=== PATIENT | male | born 1940 | race Caucasian/White ===

== ENCOUNTER 2017-11-03 18:54 | Emergency (ER) | payer MEDICARE, BC ==
--- NOTE | 2017-11-03 19:53 | EDM.PDOC ---
ED HPI GENERAL MEDICAL PROBLEM - General Chief Complaint: Flank Pain Stated Complaint: R FLANK PAIN Time Seen by Provider: 11/03/17 19:30 Source of Information: Reports: Patient, Family History Limitations: Reports: No Limitations - History of Present Illness INITIAL COMMENTS - FREE TEXT/NARRATIVE: 77-year-old male who has developed a right lateral chest and right flank pain over the past 24 hours. It started as a vague discomfort yesterday, seemed to be better this morning but as he increased activity it started to bother him more. Tonight he was out trying to start a snowmobile and after several attempts at pulling the starter he noticed the pain markedly increased, is also getting significant discomfort with any coughs. The pain is very localized to the right flank into the right anterior lateral chest. No shortness of breath, no fever or chills, no specific trauma such as falls, denies abdominal pain. Onset: Gradual (Over the past 24 hours) Location: Reports: Chest, Back Quality: Reports: Sharp, Stabbing Severity: Moderate Improves with: Reports: None Worsens with: Reports: Other (Coughing or sudden movement) right flank Pain Score (Numeric/FACES): 8 - Related Data Allergies Allergy/AdvReac Type Severity Reaction Status Date / Time No Known Allergies Allergy Verified 11/03/17 19:07 Home Meds: Home Meds Allopurinol [Zyloprim] 100 mg PO DAILY 05/31/16 [History] Cholecalciferol (Vitamin D3) [Vitamin D] 1,000 unit PO DAILY 05/31/16 [History] Doxazosin Mesylate [Cardura] 4 mg PO BID 05/31/16 [History] Ferrous Sulfate 325 mg PO DAILY 05/31/16 [History] Finasteride [Proscar] 5 mg PO DAILY 05/31/16 [History] Hydrochlorothiazide 12.5 mg PO DAILY 05/31/16 [History] atorvaSTATin [Lipitor] 20 mg PO BEDTIME 10/14/16 [History] glipiZIDE [Glucotrol Xl] 5 mg PO BID 10/14/16 [History] Albuterol Sulfate [Proair Respiclick] 2 puff IH QID PRN 05/19/17 [History] Fluticasone/Salmeterol [Advair 250-50 Diskus] 1 puff PO BID 05/19/17 [History] Nebivolol HCl [Bystolic] 5 mg PO DAILY 05/19/17 [History] Warfarin [Coumadin] 5 mg PO DAILY 05/19/17 [History] Aspirin [Ecotrin] 325 mg PO DAILY 11/03/17 [History] Past Medical History HEENT History: Reports: Cataract, Impaired Vision Cardiovascular History: Reports: Afib, Heart Murmur, High Cholesterol, Hypertension, SOB on Exertion Respiratory History: Reports: COPD Gastrointestinal History: Reports: GERD Genitourinary History: Reports: Chronic Renal Insuffiency, Renal Disease Other Genitourinary History: kidney diseases Musculoskeletal History: Reports: Arthritis, Gout Neurological History: Reports: TIA Endocrine/Metabolic History: Reports: Diabetes, Type II, Obesity/BMI 30+ Hematologic History: Reports: Anticoagulation Therapy - Infectious Disease History Infectious Disease History: Reports: Chicken Pox, Measles, Mumps - Past Surgical History HEENT Surgical History: Reports: Cataract Surgery Cardiovascular Surgical History: Reports: Carotid Endarterectomy GI Surgical History: Reports: Hernia Repair/Other Musculoskeletal Surgical History: Reports: Knee Replacement Social & Family History - Tobacco Use Smoking Status *Q: Never Smoker - Caffeine Use Caffeine Use: Reports: Coffee - Recreational Drug Use Recreational Drug Use: No ED ROS GENERAL - Review of Systems Review Of Systems: See Below Constitutional: Denies: Fever, Chills Respiratory: Reports: Pleuritic Chest Pain. Denies: Shortness of Breath Cardiovascular: Reports: Chest Pain GI/Abdominal: Denies: Abdominal Pain, Nausea, Vomiting : Reports: Other (Being followed for renal failure, no dysuria or urinary symptoms) Skin: Denies: Bruising, Rash Neurological: Reports: No Symptoms Psychiatric: Reports: No Symptoms ED EXAM, GENERAL - Physical Exam Exam: See Below Exam Limited By: No Limitations General Appearance: Alert, No Apparent Distress Respiratory/Chest: No Respiratory Distress, Lungs Clear, Other (Pain is reproducible with palpation of the lateral chest wall over the lower ribs, 9 through 11th. No crepitus or asymmetry.) GI/Abdominal: Normal Bowel Sounds. No: Tender (Abdomen is obese but nontender to palpation) Course - Vital Signs Last Recorded V/S: Last Vital Signs Temp 96.1 F 11/03/17 19:17 Pulse 77 11/03/17 19:45 Resp 18 11/03/17 19:17 BP 163/63 H 11/03/17 19:45 Pulse Ox 93 L 11/03/17 19:17 - Orders/Labs/Meds Orders: Active Orders 24 hr Category Date Time Status Chest 2V [CR] Routine Exams 11/03/17 19:46 Taken - Re-Assessments/Exams Free Text/Narrative Re-Assessment/Exam: 11/03/17 19:53 A two-view chest x-ray was obtained. 11/03/17 20:33 Chest x-ray shows what appears to be a rib fracture of the lateral 9th rib. This patient recently had a PET scan which apparently was negative, a pathologic fracture would certainly be a concern but the recent PET scan is reassuring. He was discharged with 20 hydrocodone to use for extra pain control along with ibuprofen or naproxen, and benzonatate Perles to help with his cough. He will return if worsening such as fever or shortness of breath, or consider recheck in 7-10 days if not improving satisfactorily. Departure - Departure Time of Disposition: 20:44 Disposition: Home, Self-Care 01 Condition: Good Clinical Impression: Closed rib fracture Qualifiers: Encounter type: initial encounter Rib fracture type: single rib Laterality: right Qualified Code(s): S22.31XA - Fracture of one rib, right side, initial encounter for closed fracture - Discharge Information Instructions: Rib Fracture, [id number] Referrals: Leodan Gardner PA-C [Primary Care Provider] - Forms: ED Department Discharge Care Plan Goals: Try ibuprofen or naproxen for the next several days, and add stronger pain medication as needed and prescribed. Use cough suppression medication as prescribed. Recheck if worsening such as fever, uncontrolled pain, worsening shortness of breath. Otherwise recheck in 7-10 days if you do not feel you're healing satisfactorily. - My Orders Last 24 Hours: My Active Orders 11/03/17 19:46 Chest 2V [CR] Routine - Assessment/Plan Last 24 Hours: My Active Orders 11/03/17 19:46 Chest 2V [CR] Routine
[2017-11-03 20:37] VITALS: BP 163/63
--- NOTE | 2017-11-04 09:49 | CR ---
Chest 2V HISTORY: dyspnea COMPARISON: None FINDINGS: Lungs appear clear and mildly hyperinflated. Heart size is upper limits of normal. No vascular redist ribution or pleural fluid can be seen. There is a fracture of the posterior lateral right ninth rib. Acuity is indeterminate. No pneumothorax is seen. IMPRESSION: Mild hyperinflation suggests a component of COPD. Fracture of the posterior lateral right ninth rib i s of indeterminate acuity. Recommend correlation for point tenderness. No other acute chest abnormali ty is identified.
== END 2017-11-03 20:42 | disposition home or self-care (01) ==
LOC: JP.ED 18:54
DX: S22.31XA Fracture of one rib, right side, initial encounter for closed fracture (principal); I12.9 Hypertensive chronic kidney disease with stage 1 through stage 4 chronic kidney disease, or unspecified chronic kidney disease; E11.22 Type 2 diabetes mellitus with diabetic chronic kidney disease; N18.9 Chronic kidney disease, unspecified; J44.9 Chronic obstructive pulmonary disease, unspecified; I48.91 Unspecified atrial fibrillation; E78.00 Pure hypercholesterolemia, unspecified; Z79.01 Long term (current) use of anticoagulants; Z79.82 Long term (current) use of aspirin; Z79.84 Long term (current) use of oral hypoglycemic drugs; Z79.899 Other long term (current) drug therapy; X58.XXXA Exposure to other specified factors, initial encounter; Y93.29 Activity, other involving ice and snow
CPT/HCPCS: 71020; 71020-26; 99283; 99284

== ENCOUNTER 2018-04-12 10:45 | Day surgery (SDC) | payer MEDICARE, BC ==
[~2018-04-12 10:45] MED LIST: Bupivacaine 0.5% 50 ML MDV ONE; Lidocaine 2% 20 ML MDV ONE
[2018-04-12] MEDS ORDERED: fentaNYL 100 MCG/2 ML SDV ONE (10:57)
[2018-04-12] MEDS ORDERED: Propofol 200 MG/20 ML SDV ONE (10:57)
[2018-04-12] MEDS ORDERED: Midazolam 1 MG/ML 2 ML SDV ONE (10:57)
[2018-04-12] MEDS ORDERED: ceFAZolin 2 GM in Premix Bag 1 BAG IV ONE (11:30)
[2018-04-12] MEDS ORDERED: Lactated Ringers 1,000 ML IV SCH (11:30)
--- NOTE | 2018-04-12 13:41 | OR ---
DATE OF PROCEDURE: 04/12/2018 HEADER BOSS: None. PREOPERATIVE DIAGNOSIS: Ulcer right second toe. POSTOPERATIVE DIAGNOSIS: Ulcer right second toe. PROCEDURE: Amputation right 2nd toe. ANESTHESIA: Local with IV sedation. HEMOSTASIS: Was obtained with an ankle tourniquet on the right ankle at 250 mmHg. ESTIMATED BLOOD LOSS: 5 mL. MATERIALS: None. INJECTABLES: 16 mL of 1:1 mixture of lidocaine 2% plain, Marcaine 0.5% plain was injected prior to prep. PATHOLOGY: Right 2nd toe, sent condition was stable. INDICATIONS FOR SURGERY: Recurrent ulcer, right 2nd toe. PROCEDURE IN DETAIL: The patient was brought to the operating room, placed on the operating table in supine position. Following IV sedation, anesthesia was obtained with a total of 16 mL of 1:1 mixture of lidocaine 2% plain, Marcaine 0.5% plain. The right foot was scrubbed, prepped, and draped in the usual aseptic manner, raised to 60 degrees for hemostasis and tourniquet was inflated. Esmarch was not used. Incision was made in a semielliptical type incision at the base of the right 2nd toe. Incisions were carried straight down to bone and the right 2nd toe was disarticulated at the metatarsophalangeal joint and then removed. The incision was examined and the right 2nd metatarsal head was healthy with strong bone and white cartilage there was no purulence, no malodor, no signs of infection at the amputation site. The amputation site was flushed with copious amounts of sterile saline and then closed with 3-0 nylon in a simple interrupted configuration and dressed with Xeroform, 4x4s, Kerlix, and Coban. The patient was returned to recovery room with vital signs stable and vascular status intact to both feet. Patient is given prescription for Catlett one tab p.o. q.4-6 h. p.r.n. pain dispensed #30 and told him to return to clinic in one week at which time, he will be re-evaluated. The patient is told to go to the emergency room immediately if he has any nausea, vomiting, fever, chills, chest pain, calf pain, or difficulty breathing, and to follow up with Dr. White one week. Keep dressings clean, dry, and intact. Partial weightbearing on the right foot with a Cam boot and also with walker. Sridhar Scott DPM /[id number]
[2018-04-12 13:55] VITALS: BP 178/117
[2018-04-12] MEDS ORDERED: Acetaminophen/HYDROcodone 325-5 MG Tab PO PRN (14:26)
== END 2018-04-12 14:55 | disposition home or self-care (01) ==
LOC: JP.SDS 10:45
PROVIDERS: ATTEND Podiatrist Foot & Ankle Surgery
DX: E11.621 Type 2 diabetes mellitus with foot ulcer (principal); L97.519 Non-pressure chronic ulcer of other part of right foot with unspecified severity; I12.9 Hypertensive chronic kidney disease with stage 1 through stage 4 chronic kidney disease, or unspecified chronic kidney disease; E11.22 Type 2 diabetes mellitus with diabetic chronic kidney disease; N18.4 Chronic kidney disease, stage 4 (severe); Z79.4 Long term (current) use of insulin; J44.9 Chronic obstructive pulmonary disease, unspecified; G47.33 Obstructive sleep apnea (adult) (pediatric); E66.9 Obesity, unspecified; Z68.39 Body mass index [BMI] 39.0-39.9, adult; I48.91 Unspecified atrial fibrillation; Z79.82 Long term (current) use of aspirin; Z79.899 Other long term (current) drug therapy
CPT/HCPCS: 28820; A9270; J0690; J2250; J2704; J3010; J7120; 88305; 88311

== ENCOUNTER 2019-05-22 00:17 | Emergency (ER) | payer BC, MEDICARE ==
[2019-05-22 00:34] VITALS: BP 140/61; PULSE 80
--- NOTE | 2019-05-22 01:29 | EDM.PDOC ---
ED HPI GENERAL MEDICAL PROBLEM - General Chief Complaint: Genitourinary Problem Stated Complaint: BLEEDING Time Seen by Provider: 05/22/19 00:45 Source of Information: Reports: Patient, Family History Limitations: Reports: No Limitations - History of Present Illness INITIAL COMMENTS - FREE TEXT/NARRATIVE: 78-year-old male with gross hematuria for the past hour and a half. This is his second incident of hematuria in the last 2 weeks, he had fairly complete clearing intermittent was still some microscopic hematuria. He has a follow-up appointment in 2 days with his primary provider. Tonight he noticed while having a bowel movement he was having the sensation of incontinence and looked down and he was bleeding from the penis. He has no dysuria or urinary frequency , no flank pain. It seems to have slowed down now but there is a clot at the meatus. He is uncircumcised. He is having no problems passing his urine. Onset: Unknown/Unsure Associated Symptoms: Reports: No Other Symptoms - Related Data Allergies Allergy/AdvReac Type Severity Reaction Status Date / Time No Known Allergies Allergy Verified 05/22/19 00:34 Home Meds: Home Meds Allopurinol [Zyloprim] 100 mg PO DAILY 05/31/16 [History] Cholecalciferol (Vitamin D3) [Vitamin D] 1,000 unit PO DAILY 05/31/16 [History] Doxazosin Mesylate [Cardura] 4 mg PO BID 05/31/16 [History] Ferrous Sulfate 325 mg PO DAILY 05/31/16 [History] Finasteride [Proscar] 5 mg PO DAILY 05/31/16 [History] atorvaSTATin [Lipitor] 20 mg PO BEDTIME 10/14/16 [History] glipiZIDE [Glucotrol Xl] 5 mg PO BID 10/14/16 [History] Albuterol Sulfate [Proair Respiclick] 2 puff IH QID PRN 05/19/17 [History] Warfarin [Coumadin] 5 mg PO DAILY 05/19/17 [History] Acetaminophen [Tylenol Extra Strength] 500 - 1,000 mg PO Q6H PRN 04/12/18 [ History] Furosemide 40 mg PO DAILY 04/12/18 [History] hydrALAZINE [Apresoline] 25 mg PO TID 04/12/18 [History] Albuterol Sulfate 1.25 mg IH Q4HR PRN 05/22/19 [History] Budesonide [Pulmicort] 1 mg IH BID 05/22/19 [History] Formoterol [Perforomist] 20 mcg INH BID 05/22/19 [History] Insulin NPH/Insulin Reg,Human [HumuLIN 70-30] 25 units SQ BID 05/22/19 [History] Ipratropium [Atrovent] 0.5 mg IH BID 05/22/19 [History] Metoprolol Succinate [Toprol XL 50mg] 50 mg PO DAILY 05/22/19 [History] Warfarin [Coumadin] 10 mg PO DAILY 05/22/19 [History] Past Medical History HEENT History: Reports: Cataract, Impaired Vision Cardiovascular History: Reports: Afib, Heart Murmur, High Cholesterol, Hypertension, SOB on Exertion Respiratory History: Reports: Asthma, COPD, Sleep Apnea Gastrointestinal History: Reports: GERD Genitourinary History: Reports: Chronic Renal Insuffiency, Renal Disease Other Genitourinary History: kidney diseases Musculoskeletal History: Reports: Arthritis, Gout Neurological History: Reports: TIA Endocrine/Metabolic History: Reports: Diabetes, Type II, Obesity/BMI 30+ Hematologic History: Reports: Anticoagulation Therapy - Infectious Disease History Infectious Disease History: Reports: Chicken Pox, Measles, Mumps - Past Surgical History HEENT Surgical History: Reports: Cataract Surgery Cardiovascular Surgical History: Reports: Carotid Endarterectomy GI Surgical History: Reports: Hernia Repair/Other Musculoskeletal Surgical History: Reports: Knee Replacement Other Musculoskeletal Surgeries/Procedures:: Both knees replaced. Social & Family History - Tobacco Use Smoking Status *Q: Former Smoker Used Tobacco, but Quit: Yes Month/Year Tobacco Last Used: 30 years - Caffeine Use Caffeine Use: Reports: Coffee - Recreational Drug Use Recreational Drug Use: No ED ROS GENERAL - Review of Systems Review Of Systems: See Below Constitutional: Denies: Fever, Chills Respiratory: Reports: Shortness of Breath (Chronic shortness of breath and COPD) GI/Abdominal: Denies: Abdominal Pain : Reports: Other (Patient is being followed for known renal failure but is not on dialysis) Neurological: Reports: No Symptoms Psychiatric: Reports: No Symptoms ED EXAM, RENAL/ - Physical Exam Exam: See Below Exam Limited By: No Limitations General Appearance: Alert, No Apparent Distress Respiratory/Chest: No Respiratory Distress GI/Abdominal: Normal Bowel Sounds, Soft, Non-Tender (Male) Exam: Other (Genitourinary area appears grossly normal, he is uncircumcised. There is a well-developed clot under the foreskin which was removed, there is no active bleeding currently.) Course - Vital Signs Last Recorded V/S: Last Vital Signs Temp 96.6 F 05/22/19 00:31 Pulse 80 05/22/19 00:31 Resp 18 05/22/19 00:31 BP 140/61 05/22/19 00:31 Pulse Ox 90 L 05/22/19 00:31 - Orders/Labs/Meds Labs: Laboratory Tests 05/22/19 05/22/19 Range/Units 01:16 01:16 WBC 7.4 (4.5-11.0) K/uL RBC 3.58 L (4.30-5.90) M/uL Hgb 11.0 L (12.0-15.0) g/dL Hct 35.6 L (40.0-54.0) % MCV 99 H (80-98) fL MCH 31 (27-31) pg MCHC 31 L (32-36) % Plt Count 152 (150-400) K/uL Neut % (Auto) 66 (36-66) % Lymph % (Auto) 21 L (24-44) % Greer % (Auto) 9 H (2-6) % Eos % (Auto) 3 (2-4) % Baso % (Auto) 0 (0-1) % PT 19.8 H (9.5-12.0) sec INR 1.90 H (0.80-1.20) - Re-Assessments/Exams Free Text/Narrative Re-Assessment/Exam: 05/22/19 01:29 CBC and INR was obtained. 05/22/19 01:48 INR was 1.9, CBC revealed a hemoglobin of 11.0. Hemoglobin was 11.7 2 months ago. The bleeding seems to have stopped currently, but this patient doesn't need a fairly urgent urology consultation for a cystoscopy. He has an appointment with his primary provider to our on Wednesday, but will call later today if the bleeding is persistent as he was discharged from the emergency room at 2 AM. He can also return to the emergency room. He will also return if he develops any bladder obstruction. Departure - Departure Time of Disposition: 02:01 Disposition: Home, Self-Care Clinical Impression: Gross hematuria - Discharge Information Instructions: Hematuria, Adult Referrals: Otis James NP [Primary Care Provider] - Forms: ED Department Discharge Care Plan Goals: Continue your current medications, call Otis James tomorrow to discuss a urology referral or return to the emergency room if bleeding is persistent, you developed dizziness or become lightheaded. Also return if you develop bladder obstruction with discomfort and inability to urinate.
== END 2019-05-22 02:01 | disposition home or self-care (01) ==
LOC: JP.ED 00:17
DX: R31.0 Gross hematuria (principal); I48.91 Unspecified atrial fibrillation; E78.00 Pure hypercholesterolemia, unspecified; J44.9 Chronic obstructive pulmonary disease, unspecified; K21.9 Gastro-esophageal reflux disease without esophagitis; I12.9 Hypertensive chronic kidney disease with stage 1 through stage 4 chronic kidney disease, or unspecified chronic kidney disease; E11.9 Type 2 diabetes mellitus without complications; E66.9 Obesity, unspecified; Z68.41 Body mass index [BMI] 40.0-44.9, adult; Z79.899 Other long term (current) drug therapy; Z79.01 Long term (current) use of anticoagulants; Z79.4 Long term (current) use of insulin; Z87.891 Personal history of nicotine dependence
CPT/HCPCS: 36415; 85025; 85610; 99283

== ENCOUNTER 2022-09-07 21:04 | Inpatient (IN) | payer MEDICARE, OTHER ==
[2022-09-07] MEDS ORDERED: Sodium Chloride 0.9% 10 ML Syringe FLUSH PRN (21:05)
[2022-09-07] MEDS ORDERED: Furosemide 40 MG/4 ML VIAL IVPUSH ONE (21:11)
[2022-09-07 21:51] LABS: ESTIMATED GFR 19 mL/min (>60); TROPONIN I HIGH SENSITIVITY 31.1 pg/mL (<=60.3)
[2022-09-07] MEDS ORDERED: Ondansetron 4 MG Tab.DIS PO PRN (23:32)
[2022-09-07] MEDS ORDERED: Ondansetron 4 MG/2 ML SDV IV PRN (23:32)
[2022-09-07] MEDS ORDERED: Acetaminophen 325 MG Tab PO PRN (23:32)
[2022-09-07] MEDS ORDERED: Magnesium Hydroxide 400 MG/5 ML Susp 30 ML Cup PO PRN (23:32)
[2022-09-07] MEDS ORDERED: Doxycycline 100 MG in Sodium Chloride 0.9% 100 ML IV SCH (23:32)
[2022-09-07] MEDS ORDERED: Albuterol 0.083% 2.5 MG/3 ML Neb Soln NEB PRN (23:32)
[2022-09-08] MEDS: Doxycycline 100 MG in Sodium Chloride 0.9% 100 ML IV SCH ×2 (00:35→13:05)
[2022-09-08] MEDS: methylPREDNISolone Sodium Succinate 40 MG/1 ML SDV IVPUSH SCH ×4 (00:35→18:22)
[2022-09-08] MEDS ORDERED: Potassium Chloride 10 MEQ in Premix Bag 3 BAG IV ONE (01:10)
[2022-09-08] MEDS: Potassium Chloride 100 ML IV SCH ×3 (02:18→04:37)
[2022-09-08] MEDS ORDERED: Albuterol/Ipratropium 3.0-0.5 MG/3 ML Neb Soln NEB SCH ×2 (03:00→06:00)
[2022-09-08] MEDS: Albuterol/Ipratropium 3.0-0.5 MG/3 ML Neb Soln NEB SCH ×3 (07:55→18:40)
[2022-09-08] MEDS: Nystatin Topical Powder 15 GM Bottle TOP SCH ×2 (08:45→21:23)
[2022-09-08] MEDS ORDERED: Nystatin Topical Powder 15 GM Bottle TOP SCH (09:00)
[2022-09-08] MEDS ORDERED: Furosemide 40 MG/4 ML VIAL IVPUSH ONE (10:45)
[2022-09-08] MEDS: Insulin Lispro 100 Unit/ML 3 ML KwikPen SUBCUT SCH ×2 (13:27→17:24)
[2022-09-08] MEDS: cefTRIAXone 1 GM in Sodium Chloride 0.9% 50 ML IV SCH (17:00)
[2022-09-08] MEDS ORDERED: Ipratropium 0.02% 0.5 MG/2.5 ML Neb Soln INH SCH (21:00)
[2022-09-08] MEDS ORDERED: Insulin Lispro 100 Unit/ML 3 ML KwikPen SUBCUT ONE (21:11)
[2022-09-08] MEDS ORDERED: Glucagon,Human Recombinant 1 MG Vial IM PRN (21:11)
[2022-09-08] MEDS ORDERED: 50% Dextrose in Water 50 ML Syringe IVPUSH PRN (21:11)
[2022-09-08] MEDS: Arformoterol 15 MCG/2 ML Neb Soln INH SCH (21:22)
[2022-09-08] MEDS: Budesonide 0.5 MG/2 ML Neb Susp INH SCH (21:22)
[2022-09-08] MEDS: atorvaSTATin 20 MG Tab PO SCH (21:22)
[2022-09-08] MEDS: Doxazosin 4 MG Tab PO SCH (21:22)
[2022-09-09] MEDS: Doxycycline 100 MG in Sodium Chloride 0.9% 100 ML IV SCH ×2 (00:30→11:11)
[2022-09-09] MEDS: methylPREDNISolone Sodium Succinate 40 MG/1 ML SDV IVPUSH SCH ×3 (00:30→11:09)
[2022-09-09] MEDS: Albuterol/Ipratropium 3.0-0.5 MG/3 ML Neb Soln NEB SCH ×4 (01:01→20:55)
[2022-09-09] MEDS ORDERED: Insulin Lispro 100 Units/ML 3 ML Vial SUBCUT ONE (05:21)
[2022-09-09] MEDS: Sodium Chloride 0.9% 1,000 ML IV SCH ×2 (05:53→17:56)
[2022-09-09] MEDS: Arformoterol 15 MCG/2 ML Neb Soln INH SCH ×2 (07:00→20:55)
[2022-09-09] MEDS: Budesonide 0.5 MG/2 ML Neb Susp INH SCH ×2 (07:00→20:55)
[2022-09-09] MEDS: Doxazosin 4 MG Tab PO SCH ×2 (08:15→20:50)
[2022-09-09] MEDS: Aspirin 81 MG Tab.Chew PO SCH (08:15)
[2022-09-09] MEDS: Metoprolol Succinate 50 MG Tab.ER PO SCH (08:16)
[2022-09-09] MEDS: Allopurinol 100 MG Tab PO SCH (08:17)
[2022-09-09] MEDS: Finasteride 5 MG Tab PO SCH (08:17)
[2022-09-09] MEDS: Nystatin Topical Powder 15 GM Bottle TOP SCH ×2 (08:18→20:59)
[2022-09-09] MEDS: Insulin NPH HUM/REG Insulin HM 100 UNIT/ML 3 ML Vial SQ SCH ×2 (08:31→21:11)
[2022-09-09] MEDS ORDERED: Insulin Lispro 100 Unit/ML 3 ML KwikPen SUBCUT ONE ×2 (12:00→16:54)
[2022-09-09] MEDS ORDERED: Glucagon,Human Recombinant 1 MG Vial IM PRN ×2 (12:04→16:54)
[2022-09-09] MEDS ORDERED: 50% Dextrose in Water 50 ML Syringe IVPUSH PRN ×2 (12:04→16:54)
[2022-09-09] MEDS: cefTRIAXone 1 GM in Sodium Chloride 0.9% 50 ML IV SCH (15:39)
[2022-09-09] MEDS: atorvaSTATin 20 MG Tab PO SCH (20:51)
[2022-09-09] MEDS: Insulin Lispro 100 Unit/ML 3 ML KwikPen SUBCUT SCH (21:11)
[2022-09-10] MEDS: Doxycycline 100 MG in Sodium Chloride 0.9% 100 ML IV SCH ×2 (00:22→12:11)
[2022-09-10] MEDS: Albuterol/Ipratropium 3.0-0.5 MG/3 ML Neb Soln NEB SCH ×4 (00:26→19:19)
[2022-09-10] MEDS: Budesonide 0.5 MG/2 ML Neb Susp INH SCH ×2 (07:00→21:32)
[2022-09-10] MEDS: Arformoterol 15 MCG/2 ML Neb Soln INH SCH ×2 (07:00→20:58)
[2022-09-10] MEDS: Metoprolol Succinate 50 MG Tab.ER PO SCH (08:01)
[2022-09-10] MEDS: Allopurinol 100 MG Tab PO SCH (08:01)
[2022-09-10] MEDS: Nystatin Topical Powder 15 GM Bottle TOP SCH ×2 (08:01→20:57)
[2022-09-10] MEDS: Doxazosin 4 MG Tab PO SCH ×2 (08:02→20:57)
[2022-09-10] MEDS: Insulin NPH HUM/REG Insulin HM 100 UNIT/ML 3 ML Vial SQ SCH ×2 (08:02→21:35)
[2022-09-10] MEDS: Aspirin 81 MG Tab.Chew PO SCH (08:02)
[2022-09-10] MEDS: Finasteride 5 MG Tab PO SCH (08:02)
[2022-09-10] MEDS ORDERED: Potassium Chloride 20 MEQ Tab.ER PO ONE ×2 (09:00→17:00)
[2022-09-10] MEDS ORDERED: predniSONE 20 MG Tab PO SCH (09:00)
[2022-09-10] MEDS ORDERED: Warfarin 2.5 MG Tab PO ONE (13:00)
[2022-09-10] MEDS: cefTRIAXone 1 GM in Sodium Chloride 0.9% 50 ML IV SCH (15:11)
[2022-09-10] MEDS: Insulin Lispro 100 Unit/ML 3 ML KwikPen SUBCUT SCH (17:09)
[2022-09-10] MEDS: atorvaSTATin 20 MG Tab PO SCH (20:57)
[2022-09-10] MEDS ORDERED: Glucagon,Human Recombinant 1 MG Vial IM PRN (21:22)
[2022-09-10] MEDS ORDERED: Insulin Lispro 100 Unit/ML 3 ML KwikPen SUBCUT ONE (21:22)
[2022-09-11] MEDS: Doxycycline 100 MG in Sodium Chloride 0.9% 100 ML IV SCH ×3 (00:10→23:09)
[2022-09-11] MEDS: Albuterol/Ipratropium 3.0-0.5 MG/3 ML Neb Soln NEB SCH ×4 (00:40→19:37)
[2022-09-11] MEDS: Arformoterol 15 MCG/2 ML Neb Soln INH SCH ×2 (07:03→20:21)
[2022-09-11] MEDS: Budesonide 0.5 MG/2 ML Neb Susp INH SCH ×2 (07:03→20:33)
[2022-09-11] MEDS: Metolazone 2.5 MG Tab PO SCH (08:56)
[2022-09-11] MEDS: Metoprolol Succinate 50 MG Tab.ER PO SCH (08:56)
[2022-09-11] MEDS: Furosemide 40 MG Tab PO SCH ×2 (08:56→14:24)
[2022-09-11] MEDS: Aspirin 81 MG Tab.Chew PO SCH (08:56)
[2022-09-11] MEDS: Doxazosin 4 MG Tab PO SCH ×2 (08:56→20:21)
[2022-09-11] MEDS: Finasteride 5 MG Tab PO SCH (08:56)
[2022-09-11] MEDS: Allopurinol 100 MG Tab PO SCH (08:56)
[2022-09-11] MEDS: Insulin NPH HUM/REG Insulin HM 100 UNIT/ML 3 ML Vial SQ SCH ×2 (08:57→21:25)
[2022-09-11] MEDS: Nystatin Topical Powder 15 GM Bottle TOP SCH ×2 (08:57→20:21)
[2022-09-11] MEDS ORDERED: Warfarin 2.5 MG Tab PO ONE (15:30)
[2022-09-11] MEDS: cefTRIAXone 1 GM in Sodium Chloride 0.9% 50 ML IV SCH (16:31)
[2022-09-11] MEDS: Insulin Lispro 100 Unit/ML 3 ML KwikPen SUBCUT SCH ×2 (17:07→21:25)
[2022-09-11] MEDS: atorvaSTATin 20 MG Tab PO SCH (20:21)
[2022-09-12] MEDS: Albuterol/Ipratropium 3.0-0.5 MG/3 ML Neb Soln NEB SCH ×3 (00:30→12:50)
[2022-09-12] MEDS: Budesonide 0.5 MG/2 ML Neb Susp INH SCH (07:40)
[2022-09-12] MEDS: Arformoterol 15 MCG/2 ML Neb Soln INH SCH (07:40)
[2022-09-12] MEDS: Furosemide 40 MG Tab PO SCH (08:09)
[2022-09-12] MEDS: Doxazosin 4 MG Tab PO SCH (08:09)
[2022-09-12] MEDS: Aspirin 81 MG Tab.Chew PO SCH (08:09)
[2022-09-12] MEDS: Finasteride 5 MG Tab PO SCH (08:10)
[2022-09-12] MEDS: Nystatin Topical Powder 15 GM Bottle TOP SCH (08:10)
[2022-09-12] MEDS: Metoprolol Succinate 50 MG Tab.ER PO SCH (08:10)
[2022-09-12] MEDS: Allopurinol 100 MG Tab PO SCH (08:11)
[2022-09-12] MEDS: Metolazone 2.5 MG Tab PO SCH (08:11)
[2022-09-12] MEDS: Insulin NPH HUM/REG Insulin HM 100 UNIT/ML 3 ML Vial SQ SCH (09:06)
[2022-09-12] MEDS: Doxycycline 100 MG in Sodium Chloride 0.9% 100 ML IV SCH (11:16)
[2022-09-12 11:19] VITALS: BP 124/54; PULSE 79
== END 2022-09-12 13:05 | disposition home health service (06) | DRG 193 ==
LOC: JP.ED 21:04 → JP.ICU 22:55 → UNDOADMIN 22:55
PROVIDERS: ADMIT Hospitalist; ATTEND Hospitalist
DX: J18.9 Pneumonia, unspecified organism (principal); J96.21 Acute and chronic respiratory failure with hypoxia; J96.22 Acute and chronic respiratory failure with hypercapnia; N18.4 Chronic kidney disease, stage 4 (severe); M19.90 Unspecified osteoarthritis, unspecified site; J44.0 Chronic obstructive pulmonary disease with (acute) lower respiratory infection; E87.29 Other acidosis; N18.9 Chronic kidney disease, unspecified; I13.0 Hypertensive heart and chronic kidney disease with heart failure and stage 1 through stage 4 chronic kidney disease, or unspecified chronic kidney disease; J44.1 Chronic obstructive pulmonary disease with (acute) exacerbation; Z66 Do not resuscitate; Z20.822 Contact with and (suspected) exposure to COVID-19; I27.81 Cor pulmonale (chronic); K21.9 Gastro-esophageal reflux disease without esophagitis; Z96.653 Presence of artificial knee joint, bilateral; E87.6 Hypokalemia; I48.91 Unspecified atrial fibrillation; E78.00 Pure hypercholesterolemia, unspecified; Z79.01 Long term (current) use of anticoagulants; E10.22 Type 1 diabetes mellitus with diabetic chronic kidney disease; I50.9 Heart failure, unspecified; Z79.4 Long term (current) use of insulin; Z79.82 Long term (current) use of aspirin; Z79.899 Other long term (current) drug therapy; Z86.73 Personal history of transient ischemic attack (TIA), and cerebral infarction without residual deficits; Z98.49 Cataract extraction status, unspecified eye; Z79.51 Long term (current) use of inhaled steroids
CPT/HCPCS: 36415; 36600; 71045; 71045-26; 80048; 80053; 81001; 82803; 82947; 83605; 83690; 83735; 83880; 84145; 84484; 85025; 85610; 86140; 87040; 93005; 93925; 93925-26; 94640; 94660; 96374; 97110-GP; 97116-GP; 97162-GP; 97530-GP; 99223; 99233; 99238; 99285-25; A9270-GY; J0696; J1815; J1815-GY; J1940; J2920; J3480; J3490; J7030; J7512; J7605; J7620; U0002